=== PATIENT | female | born 1980 | race Caucasian/White ===

== ENCOUNTER 2016-08-27 09:05 | Emergency (ER) | payer MEDICAID ==
[2016-08-27] MEDS ORDERED: OXYcodone/APAP 5/325MG TABLET ONE (10:34)
== END 2016-08-27 11:12 | disposition home or self-care (01) ==
LOC: ED 09:05
DX: S39.012A Strain of muscle, fascia and tendon of lower back, initial encounter (principal); S20.212A Contusion of left front wall of thorax, initial encounter; V49.49XA Driver injured in collision with other motor vehicles in traffic accident, initial encounter; Y93.89 Activity, other specified; Y99.8 Other external cause status; Y92.488 Other paved roadways as the place of occurrence of the external cause
CPT/HCPCS: 72072; 72110; 99284